=== PATIENT | female | born 1995 | race Caucasian/White ===

== ENCOUNTER 2020-05-31 12:55 | Emergency (ER) | payer OTHER ==
[~2020-05-31] VITALS: Ht 157.5 cm; Wt 68.0 kg
[2020-05-31] MEDS ORDERED: PRENA1 TRUE CO1 EACH (13:21)
== END 2020-05-31 19:02 | disposition home or self-care (01) ==
LOC: ER 12:55
DX: O20.0 Threatened abortion (principal); U07.1 COVID-19

== ENCOUNTER → 2020-07-28 | Emergency (ER) | payer OTHER ==
[~2020-07-28] MED LIST: PRENA1 TRUE CO1 EACH
== END | disposition left against medical advice (07) ==
LOC: ER 16:42
DX: Z53.20 Procedure and treatment not carried out because of patient's decision for unspecified reasons (principal)

== ENCOUNTER → 2020-07-28 | Emergency (ER) | payer OTHER ==
[~2020-07-28] VITALS: Ht 157.5 cm; Wt 68.0 kg
== END | disposition left against medical advice (07) ==
LOC: ER 16:22
DX: O26.891 Other specified pregnancy related conditions, first trimester (principal); R10.2 Pelvic and perineal pain; Z34.01 Encounter for supervision of normal first pregnancy, first trimester

== ENCOUNTER 2020-09-03 10:42 | Emergency (ER) | payer OTHER ==
[~2020-09-03] VITALS: Ht 157.5 cm; Wt 68.5 kg
[2020-09-03] MEDS ORDERED: TAMS0.4C PO (17:24)
[2020-09-03] MEDS ORDERED: PERCOCET 5-3251 EACH PO (17:24)
== END 2020-09-03 17:43 ==
LOC: ER 10:42
DX: R10.9 Unspecified abdominal pain (principal)

== ENCOUNTER → 2020-09-19 | Outpatient (CLI) | payer OTHER ==
[~2020-09-19] MED LIST changes: +PERCOCET 5-3251 EACH PO; +TAMS0.4C PO
== END | disposition home or self-care (01) ==
LOC: PRENATAL 13:00
PROVIDERS: ATTEND Obstetrics & Gynecology Maternal & Fetal Medicine
DX: O35.0XX1 Maternal care for (suspected) central nervous system malformation in fetus, fetus 1 (principal); O35.3XX1 Maternal care for (suspected) damage to fetus from viral disease in mother, fetus 1; O98.512 Other viral diseases complicating pregnancy, second trimester; Z36.89 Encounter for other specified antenatal screening; Z3A.21 21 weeks gestation of pregnancy

== ENCOUNTER 2020-10-19 14:36 | Outpatient (CLI) | payer OTHER | END 2020-10-20 09:40 | disposition home or self-care (01) | LOC: OBS/DEL 14:36 | PROVIDERS: ATTEND Specialist | DX: O26.892 Other specified pregnancy related conditions, second trimester (principal); E16.1 Other hypoglycemia; Z3A.25 25 weeks gestation of pregnancy ==

== ENCOUNTER 2020-11-20 08:52 | Outpatient (CLI) | payer OTHER | END 2020-11-20 09:28 | disposition home or self-care (01) | LOC: PRENATAL 08:52 | PROVIDERS: ATTEND Obstetrics & Gynecology Maternal & Fetal Medicine | DX: O26.843 Uterine size-date discrepancy, third trimester (principal); Z36.89 Encounter for other specified antenatal screening; Z3A.31 31 weeks gestation of pregnancy ==

== ENCOUNTER 2020-12-01 10:39 | Outpatient (CLI) | payer OTHER | END 2020-12-01 10:59 | disposition home or self-care (01) | LOC: NST 10:39 | PROVIDERS: ATTEND Specialist | DX: Z34.83 Encounter for supervision of other normal pregnancy, third trimester (principal) ==

== ENCOUNTER 2020-12-04 18:48 | Outpatient (CLI) | payer OTHER | END 2020-12-05 10:28 | disposition home or self-care (01) | LOC: OBS/DEL 18:48 | PROVIDERS: ATTEND Specialist | DX: O26.893 Other specified pregnancy related conditions, third trimester (principal); R10.2 Pelvic and perineal pain; Z3A.32 32 weeks gestation of pregnancy; Z20.822 Contact with and (suspected) exposure to COVID-19 ==

== ENCOUNTER 2021-01-08 22:52 | Inpatient (IN) | payer OTHER ==
[~2021-01-08] VITALS: Ht 157.5 cm; Wt 74.8 kg
== END 2021-01-09 12:08 | disposition home or self-care (01) | DRG 833 ==
LOC: LDR 22:52
PROVIDERS: ADMIT Specialist; ATTEND Specialist
PROC: 4A1HXFZ Monitoring of Products of Conception, Cardiac Rhythm, External Approach (ICD-10-PCS; principal; 2021-01-08)
DX: O36.8330 Maternal care for abnormalities of the fetal heart rate or rhythm, third trimester, not applicable or unspecified (principal); Z3A.37 37 weeks gestation of pregnancy

== ENCOUNTER 2021-01-13 15:26 | Inpatient (IN) | payer OTHER ==
[~2021-01-13] VITALS: Ht 157.5 cm; Wt 83.5 kg
== END 2021-01-15 09:49 | disposition home or self-care (01) | DRG 832 ==
LOC: OB/GYN 15:26 → LDR 01-15 08:14 → OB/GYN 01-15 08:37
PROVIDERS: ADMIT Specialist; ATTEND Specialist
PROC: 4A1HXFZ Monitoring of Products of Conception, Cardiac Rhythm, External Approach (ICD-10-PCS; 2021-01-13)
PROC: BY4FZZZ Ultrasonography of Third Trimester, Single Fetus (ICD-10-PCS; principal; 2021-01-14)
DX: O14.93 Unspecified pre-eclampsia, third trimester (principal); O99.113 Other diseases of the blood and blood-forming organs and certain disorders involving the immune mechanism complicating pregnancy, third trimester; O47.1 False labor at or after 37 completed weeks of gestation; D69.6 Thrombocytopenia, unspecified; O26.03 Excessive weight gain in pregnancy, third trimester; Z3A.37 37 weeks gestation of pregnancy

== ENCOUNTER 2021-01-20 15:54 | Outpatient (CLI) | payer OTHER | END 2021-01-20 16:30 | disposition home or self-care (01) | LOC: NST 15:54 | PROVIDERS: ATTEND Specialist | DX: Z34.83 Encounter for supervision of other normal pregnancy, third trimester (principal) ==

== ENCOUNTER 2021-01-21 09:19 | Outpatient (CLI) | payer OTHER | END 2021-01-21 10:25 | disposition home or self-care (01) | LOC: PRENATAL 09:19 | PROVIDERS: ATTEND Obstetrics & Gynecology Maternal & Fetal Medicine | DX: O36.8131 Decreased fetal movements, third trimester, fetus 1 (principal); O35.0XX1 Maternal care for (suspected) central nervous system malformation in fetus, fetus 1; O26.843 Uterine size-date discrepancy, third trimester; Z36.89 Encounter for other specified antenatal screening; Z3A.38 38 weeks gestation of pregnancy ==

== ENCOUNTER 2021-01-23 19:42 | Inpatient (IN) | payer OTHER ==
[~2021-01-23] VITALS: Ht 157.5 cm; Wt 83.9 kg
== END 2021-01-27 11:58 | disposition home or self-care (01) | DRG 787 ==
LOC: LDR 19:42 → OB/GYN 19:42 → O/R 01-24 19:36 → OB/GYN 01-24 21:08
PROVIDERS: ADMIT Specialist; ATTEND Specialist
PROC: 10D00Z0 Extraction of Products of Conception, High, Open Approach (ICD-10-PCS; principal; 2021-01-23)
PROC: 10907ZC Drainage of Amniotic Fluid, Therapeutic from Products of Conception, Via Natural or Artificial Opening (ICD-10-PCS; 2021-01-23)
PROC: 3E033VJ Introduction of Other Hormone into Peripheral Vein, Percutaneous Approach (ICD-10-PCS; 2021-01-23)
PROC: 3E0P7VZ Introduction of Hormone into Female Reproductive, Via Natural or Artificial Opening (ICD-10-PCS; 2021-01-23)
PROC: 3E0DXGC Introduction of Other Therapeutic Substance into Mouth and Pharynx, External Approach (ICD-10-PCS; 2021-01-23)
PROC: 4A0HXFZ Measurement of Products of Conception, Cardiac Rhythm, External Approach (ICD-10-PCS; 2021-01-23)
DX: O61.0 Failed medical induction of labor (principal); O99.113 Other diseases of the blood and blood-forming organs and certain disorders involving the immune mechanism complicating pregnancy, third trimester; O23.43 Unspecified infection of urinary tract in pregnancy, third trimester; N39.0 Urinary tract infection, site not specified; Z3A.39 39 weeks gestation of pregnancy; Z20.822 Contact with and (suspected) exposure to COVID-19

== ENCOUNTER 2022-04-07 08:32 | Outpatient (CLI) | payer OTHER | END 2022-04-07 09:41 | disposition home or self-care (01) | LOC: PRENATAL 08:32 | PROVIDERS: ATTEND Obstetrics & Gynecology Maternal & Fetal Medicine | DX: O35.9XX0 Maternal care for (suspected) fetal abnormality and damage, unspecified, not applicable or unspecified (principal); O35.3XX0 Maternal care for (suspected) damage to fetus from viral disease in mother, not applicable or unspecified; O34.219 Maternal care for unspecified type scar from previous cesarean delivery; Z3A.22 22 weeks gestation of pregnancy ==

== ENCOUNTER 2022-05-31 12:52 | Outpatient (CLI) | payer OTHER ==
[~2022-05-31] VITALS: Ht 157.5 cm; Wt 80.3 kg
[2022-05-31] MEDS ORDERED: PRENATAL TABLE1 EAC1 PO (14:19)
== END 2022-05-31 18:45 | disposition left against medical advice (07) ==
LOC: LDR 12:52 → OBS/DEL 12:52 → LDR 18:45 → EDSTATUS 06-16 11:04
PROVIDERS: ATTEND Obstetrics & Gynecology
DX: O47.03 False labor before 37 completed weeks of gestation, third trimester (principal); U07.1 COVID-19; Z3A.30 30 weeks gestation of pregnancy; Z91.040 Latex allergy status; Z91.013 Allergy to seafood

== ENCOUNTER 2022-06-22 09:25 | Outpatient (CLI) | payer OTHER ==
[~2022-06-22 09:25] MED LIST changes: +PRENATAL TABLE1 EAC1 PO
== END 2022-06-22 10:49 | disposition home or self-care (01) ==
LOC: PRENATAL 09:25
PROVIDERS: ATTEND Obstetrics & Gynecology Maternal & Fetal Medicine
DX: O26.849 Uterine size-date discrepancy, unspecified trimester (principal); O35.9XX0 Maternal care for (suspected) fetal abnormality and damage, unspecified, not applicable or unspecified; O36.8199 Decreased fetal movements, unspecified trimester, other fetus; O34.219 Maternal care for unspecified type scar from previous cesarean delivery; Z3A.33 33 weeks gestation of pregnancy

== ENCOUNTER 2022-07-22 06:36 | Inpatient (IN) | payer OTHER ==
[~2022-07-22] VITALS: Ht 157.5 cm; Wt 3.2 kg
[2022-07-25] MEDS ORDERED: NAPR500T14 PO (11:50)
[2022-07-25] MEDS ORDERED: Tylenol #3 PO (11:50)
== END 2022-07-25 12:46 | disposition home or self-care (01) | DRG 788 ==
LOC: O/R 06:36 → LDR 06:36 → OB/GYN 06:36 → O/R 13:06 → OB/GYN 16:59
PROVIDERS: ADMIT Obstetrics & Gynecology; ATTEND Obstetrics & Gynecology
PROC: 4A1HXCZ Monitoring of Products of Conception, Cardiac Rate, External Approach (ICD-10-PCS; 2022-07-22)
PROC: 10D00Z1 Extraction of Products of Conception, Low, Open Approach (ICD-10-PCS; principal; 2022-07-22 15:15)
DX: O34.211 Maternal care for low transverse scar from previous cesarean delivery (principal); Z3A.38 38 weeks gestation of pregnancy; Z37.0 Single live birth; Z20.822 Contact with and (suspected) exposure to COVID-19

== ENCOUNTER 2023-10-13 14:19 | Outpatient (CLI) | payer OTHER ==
[~2023-10-13 14:19] MED LIST changes: +NAPR500T14 PO; +Tylenol #3 PO
== END 2023-10-13 14:20 | disposition home or self-care (01) ==
LOC: PRENATAL 14:19
PROVIDERS: ATTEND Obstetrics & Gynecology Maternal & Fetal Medicine
DX: O09.92 Supervision of high risk pregnancy, unspecified, second trimester (principal); O44.00 Complete placenta previa NOS or without hemorrhage, unspecified trimester; O34.219 Maternal care for unspecified type scar from previous cesarean delivery; O60.00 Preterm labor without delivery, unspecified trimester; Z3A.22 22 weeks gestation of pregnancy

== ENCOUNTER 2023-12-26 13:20 | Outpatient (CLI) | payer OTHER | END 2023-12-26 13:22 | disposition home or self-care (01) | LOC: PRENATAL 13:20 | PROVIDERS: ATTEND Obstetrics & Gynecology Maternal & Fetal Medicine | DX: O26.849 Uterine size-date discrepancy, unspecified trimester (principal); O36.8199 Decreased fetal movements, unspecified trimester, other fetus; O34.219 Maternal care for unspecified type scar from previous cesarean delivery; O60.00 Preterm labor without delivery, unspecified trimester; Z3A.33 33 weeks gestation of pregnancy ==

== ENCOUNTER 2024-02-02 10:30 | Inpatient (IN) | payer OTHER ==
[~2024-02-02] VITALS: Ht 157.5 cm; Wt 80.3 kg
[2024-02-02 10:38] VITALS: BP 102/65
[2024-02-02 11:39] LABS: HEMOGLOBIN 12.7 g/dL (12.0-15.00); MEAN CELL VOLUME 91.9 fL (80.00-100.00); MEAN CORPUSCULAR HEMOGLOBIN 30.7 pg (27.00-32.0); MEAN CORPUSCULAR HGB CONC 33.4 g/dl (32.0-36.0); RED BLOOD COUNT 4.14 M/uL (4.00-6.00); RED CELL DISTRIBUTION WIDTH 13.1 % (11.5-14.5)
[2024-02-02 11:43] LABS: PLATELET COUNT 126 K/uL (150-450)
[2024-02-02] MEDS ORDERED: AMPICILLIN SODIUM 2,000 MG in 0.9 % SODIUM CHLORIDE 100 ML IV SCH (12:00)
[2024-02-02 12:02] LABS: INR < 0.93; PARTIAL THROMBOPLASTIN TIME 25.2 SECONDS (22.0-34.0); PROTHROMBIN TIME 9.8 SECONDS (9.0-11.5)
[2024-02-02] MEDS ORDERED: CEFAZOLIN SODIUM 1,000 MG VIAL IV SCH (12:15)
[2024-02-02 12:27] LABS: ALBUMIN 2.8 gm/dL (3.4-5.0); BILIRUBIN TOTAL 0.31 mg/dL (0.3-1.2); CREATININE SERUM 0.54 mg/dL (0.55-1.02); GFR 135.42; GLOBULINA 3.6 G/DL (2.4-3.5); POTASSIUM 4.05 mEq/L (3.5-5.1); TOTAL PROTEIN 6.4 gm/dL (6.4-8.2)
[2024-02-02] MEDS ORDERED: ERYTHROMYCIN BASE OPHT 1GM EACH TUBE OP ONE ×2 (17:00→17:45)
[2024-02-02] MEDS ORDERED: RINGERS SOLUTION,LACTATED 1,000 ML IV SCH (17:00)
[2024-02-02] MEDS ORDERED: CHLORHEXIDINE GLUCONATE 120 ML BOTTLE TOP NR (17:00)
[2024-02-02] MEDS ORDERED: OXYTOCIN 1,000 ML IV SCH (17:00)
[2024-02-02] MEDS ORDERED: MORPHINE SULFATE 4 MG/ML VIAL IV ONE ×2 (17:30→18:00)
[2024-02-02] MEDS ORDERED: OXYTOCIN 20 UNITS/1000ML RL PIGGYBAG IV ONE (17:45)
[2024-02-02] MEDS ORDERED: SIMETHICONE 125 MG CAPSULE PO SCH (18:00)
[2024-02-02] MEDS ORDERED: MEPERIDINE HCL/PF 50 MG/ML VIAL IV SCH (18:00)
[2024-02-02] MEDS ORDERED: PROMETHAZINE HCL 50 MG/ML AMPUL IV SCH (18:00)
[2024-02-02 18:20] LABS: HEMATOCRIT 38.1 % (36.0-45.00); HEMOGLOBIN 13.1 g/dL (12.0-15.00); MEAN CELL VOLUME 90.7 fL (80.00-100.00); MEAN CORPUSCULAR HEMOGLOBIN 31.1 pg (27.00-32.0); MEAN CORPUSCULAR HGB CONC 34.3 g/dl (32.0-36.0); PLATELET COUNT 136 K/uL (150-450); RED CELL DISTRIBUTION WIDTH 13.4 % (11.5-14.5)
[2024-02-02] MEDS ORDERED: METHYLERGONOVINE MALEATE 0.2 MG/ML AMPUL IV ONE (19:30)
[2024-02-02 20:34] VITALS: BP 106/65
[2024-02-03 01:10] VITALS: BP 112/75
[2024-02-03 08:00] VITALS: BP 105/68
[2024-02-03] MEDS ORDERED: ACETAMINOPHEN WITH CODEINE 1 UDTAB TABLET PO PRN (08:45)
[2024-02-03] MEDS ORDERED: NAPROXEN 500 MG TABLET PO SCH (09:00)
[2024-02-03 16:00] VITALS: BP 92/56
[2024-02-04 00:59] VITALS: BP 100/60
[2024-02-04 15:38] VITALS: BP 108/61
[2024-02-05 00:51] VITALS: BP 100/60
[2024-02-05 08:00] VITALS: BP 100/65
[2024-02-05] MEDS ORDERED: NAPR500T14 PO (11:58)
[2024-02-05] MEDS ORDERED: Tylenol #3 PO (11:58)
== END 2024-02-05 12:23 | disposition home or self-care (01) | DRG 788 ==
LOC: LDR 10:30 → OB/GYN 17:19
PROVIDERS: ADMIT Obstetrics & Gynecology; ATTEND Obstetrics & Gynecology
PROC: 4A1HXCZ Monitoring of Products of Conception, Cardiac Rate, External Approach (ICD-10-PCS; 2024-02-02)
PROC: 10D00Z1 Extraction of Products of Conception, Low, Open Approach (ICD-10-PCS; principal; 2024-02-02 15:30)
DX: O34.211 Maternal care for low transverse scar from previous cesarean delivery (principal); Z3A.37 37 weeks gestation of pregnancy; Z37.0 Single live birth; Z20.822 Contact with and (suspected) exposure to COVID-19